=== PATIENT | female | born 1975 | race Caucasian/White ===

== ENCOUNTER → 2020-07-24 | Outpatient (CLI) | payer OTHER | LOC: LAB 13:52 | PROVIDERS: ATTEND Radiology Diagnostic Radiology | DX: Z20.828 Contact with and (suspected) exposure to other viral communicable diseases (principal) ==

== ENCOUNTER → 2020-07-24 | Outpatient (CLI) | payer OTHER | LOC: MRI 11:22 | PROVIDERS: ATTEND Radiology Diagnostic Radiology | DX: D25.9 Leiomyoma of uterus, unspecified (principal); N88.8 Other specified noninflammatory disorders of cervix uteri; R19.09 Other intra-abdominal and pelvic swelling, mass and lump ==

== ENCOUNTER → 2020-07-29 | Outpatient (CLI) | payer OTHER ==
[~2020-07-29] VITALS: Ht 167.6 cm; Wt 96.2 kg
[~2020-07-29] MED LIST: LEVO-T75 MCG PO
[2020-07-29 09:03] LABS: HEMATOCRIT 40.1 % (37.0-47.0); HEMOGLOBIN 12.9 gm/dL (12.0-15.0); MCH 25.6 pg (26.0-34.0); MCHC 32.2 g/dL (28.0-37.0); MCV 79.6 fL (80.0-100.0); RBC 5.04 mil/uL (4.20-5.00); RDW 14.3 % (10.5-14.5); WBC 5.1 thou/uL (4.0-11.0)
[2020-07-29 09:15] LABS: CALCIUM 9.2 mg/dL (8.5-10.1)
[2020-07-29 11:07] VITALS: BP 114/86
== END | disposition home or self-care (01) ==
LOC: RAD 08:00
PROVIDERS: ATTEND Radiology Diagnostic Radiology
DX: N92.0 Excessive and frequent menstruation with regular cycle (principal); D25.9 Leiomyoma of uterus, unspecified; R10.2 Pelvic and perineal pain; Z79.899 Other long term (current) drug therapy